=== PATIENT | female | born 1960 | race American Indian/Alaskan Native ===

== ENCOUNTER 2018-11-20 03:30 | Emergency (ER) | payer MEDICARE, MEDICAID ==
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
[2018-11-20 04:29] LABS: ANION GAP 10.6; CHLORIDE,CL 105 mmol/L (101-111); SODIUM,NA 136 mmol/L (135-145)
[2018-11-20 05:23] LABS: ACETAMINOPHEN < 10.0 ug/mL
== END 2018-11-20 05:25 | disposition home or self-care (01) ==
LOC: DL.ED 03:30
DX: R45.851 Suicidal ideations (principal); J06.9 Acute upper respiratory infection, unspecified; Z88.8 Allergy status to other drugs, medicaments and biological substances
CPT/HCPCS: 36415; 71046; 80053; 80305; 81001; 85025; 87804; 99285; G0480; 99284